=== PATIENT | male | born 1995 | race Two or more races ===

== ENCOUNTER 2020-05-10 16:29 | Emergency (ER) | payer BC, OTHER ==
[2020-05-10 17:50] VITALS: BP 120/82; PULSE 81; RESP 16; TEMP 98.5
--- NOTE | 2020-05-10 17:53 | ED ---
Medical Decision Making - Medical Decision Making Medical screening exam: 25-year-old male with no significant Lalo's presents with request for covid 19 testing. States that his girlfriend and several other people at work tested positive for Covid 19. Patient states he had mild symptoms yesterday however his symptoms improved. He wants to get tested for work purposes. Patient evaluated at bedside 5 be stable medical condition. Is not showing signs of respiratory distress. He is not hypoxic. Rest of vital signs within normal limits. Dictation was produced using [employer] dictation software. please excuse any grammatical, word or spelling errors. This patient was cared for during a federal and state declared state of emergency secondary to Covid 19 Chief Complaint: 25-year-old male presents with request for Covid testing History of Present Illness: 25-year-old male with no significant Lalo's presents with request for covid 19 testing. States that his girlfriend and several other people at work tested positive for Covid 19. Patient states he had mild symptoms yesterday however his symptoms improved. He wants to get tested for work purposes. The ROS documented in this emergency department record has been reviewed and confirmed by me. Those systems with pertinent positive or negative responses have been documented in the HPI. All other systems are other negative and/or noncontributory. PHYSICAL EXAM: General Impression: Alert and oriented x3, not in acute distress HEENT: Normocephalic atraumatic, extra-ocular movements intact, pupils equal and reactive to light bilaterally, mucous membranes moist. Cardiovascular: Heart regular rate and rhythm Chest: Able to complete full sentences, no retractions, no tachypnea, lungs clear to auscultation bilaterally Abdomen: abdomen soft, non-tender, non-distended, no organomegaly Musculoskeletal: Pulses present and equal in all extremities, no peripheral edema Motor: no focal deficits noted Neurological: CN II-XII grossly intact, no focal motor or sensory deficits noted Skin: Intact with no visualized rashes Psych: Normal affect and mood ED course:. 25 y Old male with no significant comorbidities presents to emergency department for Covid testing. Vital signs upon arrival shows findings within acceptable limits. Patient not hypoxic. He does not meet criteria for monoclonal antibodies infusion. Patient be discharged. Return premises discussed. Patient advised to quarantine. Patient directed to outpatient resources for Covid 19. - Lab Data Lab Results 05/10/20 Range/Units 17:57 Coronavirus (PCR) Detected A (Not Detectd) Disposition Clinical Impression: COVID-19 Disposition: HOME SELF-CARE Condition: Good Instructions (If sedation given, give patient instructions): Viral Pneumonia (DC) Additional Instructions: Today you were evaluated for symptoms consistent with upper respiratory infection. Today you tested positive for Covid 19. Your are stable for discharge, however it is instructed to to seek immediate medical attention especially if you develop worsening symptoms especially respiratory distress. If possible, try to obtain a pulse oximeter and monitor your oxygen at home. In the meantime please remain in quarantine for 14 days. For any other questions please contact Kate for here in emergency department or [facility] at [phone] Is patient prescribed a controlled substance at d/c from ED?: No Referrals: None,Stated [Primary Care Provider] - 1-2 days Time of Disposition: 18:35
== END 2020-05-10 18:53 | disposition home or self-care (01) ==
LOC: EC 16:29
DX: U07.1 COVID-19 (principal)
CPT/HCPCS: 87635; 99283

== ENCOUNTER 2020-10-07 16:50 | Emergency (ER) | payer OTHER ==
[2020-10-07 16:57] VITALS: TEMP 97.9
[2020-10-07] MEDS ORDERED: CARBAMIDE PEROXIDE 6.5% DROPS 15 ML BTL RIGHT EAR STA (17:14)
--- NOTE | 2020-10-07 17:17 | ED ---
ENT HPI - General Chief complaint: ENT Stated complaint: Object in RT Ear Source: patient, family Mode of arrival: ambulatory - History of Present Illness Initial comments: 25-year-old well-appearing white female patient, alert and oriented 4, presents to the emergency room with complaints of right ear pain for the past day. He states that he thought a piece of his ear bud was stuck in his ear. He denies any fevers, nausea vomiting or dizziness. MD complaint: ear pain -: days(s) (1) Location: R ear Severity scale (1-10): 3 Consistency: constant Improves with: none - Related Data Previous Rx's Medication Instructions Recorded Ibuprofen 800 mg PO Q6HR PRN #20 tablet 12/10/16 Amoxicillin 875 mg PO Q12HR 5 Days #10 tablet 10/07/20 Allergies Allergy/AdvReac Type Severity Reaction Status Date / Time methylphenidate Allergy Anaphylaxis Verified 05/10/20 17:49 [From [employer]] Review of Systems ROS Statement: Those systems with pertinent positive or pertinent negative responses have been documented in the HPI. ROS Other: All systems not noted in ROS Statement are negative. Past Medical History Past Medical History: No Reported History Additional Past Medical History / Comment(s): COVID 19 05/2020 History of Any Multi-Drug Resistant Organisms: None Reported Past Surgical History: No Surgical Hx Reported Past Psychological History: ADD/ADHD, Bipolar Smoking Status: Current every day smoker Past Alcohol Use History: None Reported Past Drug Use History: None Reported, Marijuana General Exam General appearance: alert, in no apparent distress Head exam: Present: atraumatic, normocephalic, normal inspection Eye exam: Present: normal appearance, PERRL, EOMI. Absent: scleral icterus, conjunctival injection, periorbital swelling ENT exam: Present: normal exam, normal oropharynx, mucous membranes moist, other (Cerumen impaction of the right ear, errythema noted) Expanded TM/Canal exam: Erythema: Right TM, Cerumen Impaction: Right TM, Canal Tenderness: Right TM Neck exam: Present: normal inspection, full ROM. Absent: tenderness, meningismus, lymphadenopathy Respiratory exam: Present: normal lung sounds bilaterally. Absent: respiratory distress, wheezes, rales, rhonchi, stridor, chest wall tenderness, accessory muscle use, decreased breath sounds Cardiovascular Exam: Present: regular rate, normal rhythm, normal heart sounds. Absent: systolic murmur, diastolic murmur, rubs, gallop, clicks Neurological exam: Present: alert, oriented X3, CN II-XII intact Psychiatric exam: Present: normal affect, normal mood Skin exam: Present: warm, dry, intact, normal color. Absent: rash Course Vital Signs 10/07/20 10/07/20 10/07/20 16:52 17:57 18:00 Temperature 97.9 F Pulse Rate 91 Respiratory 16 18 18 Rate Blood Pressure 126/74 O2 Sat by Pulse 100 Oximetry 10/07/20 20:00 Temperature Pulse Rate 92 Respiratory 20 Rate Blood Pressure 122/84 O2 Sat by Pulse 98 Oximetry Medical Decision Making - Medical Decision Making Patient's ear was irrigated by the nurse using Debrox and saline. I was able to visualize the tympanic membrane however the ear is red and irritated and painful. He was placed on antibiotics and directed to follow-up with ear nose and throat. Disposition Clinical Impression: Otitis media Disposition: HOME SELF-CARE Condition: Good Instructions (If sedation given, give patient instructions): Earache (ED) Additional Instructions: Take medication as prescribed and follow-up with ear, nose and throat doctor next week. Return if any worsening symptoms including fever or increased pain. Prescriptions: Amoxicillin 875 mg PO Q12HR 5 Days #10 tablet Is patient prescribed a controlled substance at d/c from ED?: No Referrals: None,Stated [Primary Care Provider] - 1-2 days Time of Disposition: 19:36
[2020-10-07] MEDS ORDERED: IBUPROFEN 600 MG TAB PO STA (18:37)
[2020-10-07 20:02] VITALS: BP 122/84; PULSE 92; RESP 20
== END 2020-10-07 20:02 | disposition home or self-care (01) ==
LOC: EC 16:50
DX: H66.91 Otitis media, unspecified, right ear (principal); F90.9 Attention-deficit hyperactivity disorder, unspecified type; F31.9 Bipolar disorder, unspecified; F17.200 Nicotine dependence, unspecified, uncomplicated

== ENCOUNTER 2020-11-04 12:19 | Emergency (ER) | payer OTHER ==
[2020-11-04 12:27] VITALS: TEMP 98.4
--- NOTE | 2020-11-04 12:46 | ED ---
General Adult HPI - General Chief complaint: Recheck/Abnormal Lab/Rx Stated complaint: Cough fever vomiting Time Seen by Provider: 11/04/20 12:33 Source: patient, RN notes reviewed, old records reviewed Mode of arrival: ambulatory - History of Present Illness Initial comments: 25-year-old male presenting for evaluation of vomiting diarrhea, congestion. Patient had been instructed to receive a coronavirus test and a work note by his employer. He had not established care with a primary care physician to date. He states he does have an appointment in mid November with primary care. He denies measured fever but his had subjective chills. He is otherwise healthy. He states he had coronavirus in April of this year. He has not been vaccinated. - Related Data Previous Rx's Medication Instructions Recorded Ibuprofen 800 mg PO Q6HR PRN #20 tablet 12/10/16 Amoxicillin 875 mg PO Q12HR 5 Days #10 tablet 10/07/20 Allergies Allergy/AdvReac Type Severity Reaction Status Date / Time methylphenidate Allergy Anaphylaxis Verified 11/04/20 12:27 [From [facility]] Review of Systems ROS Statement: Those systems with pertinent positive or pertinent negative responses have been documented in the HPI. ROS Other: All systems not noted in ROS Statement are negative. Past Medical History Past Medical History: No Reported History Additional Past Medical History / Comment(s): COVID 19 05/2020 History of Any Multi-Drug Resistant Organisms: None Reported Past Surgical History: No Surgical Hx Reported Past Psychological History: ADD/ADHD, Bipolar Smoking Status: Current every day smoker Past Alcohol Use History: None Reported Past Drug Use History: None Reported, Marijuana General Exam General appearance: alert, in no apparent distress Head exam: Present: atraumatic, normocephalic Eye exam: Present: normal appearance, PERRL ENT exam: Present: mucous membranes moist Neck exam: Present: normal inspection. Absent: tenderness, meningismus Respiratory exam: Present: normal lung sounds bilaterally. Absent: respiratory distress, wheezes Cardiovascular Exam: Present: regular rate, normal rhythm GI/Abdominal exam: Present: soft. Absent: distended, tenderness Extremities exam: Present: normal inspection, normal capillary refill. Absent: pedal edema, calf tenderness Neurological exam: Present: alert, oriented X3 Psychiatric exam: Present: normal affect, normal mood Skin exam: Present: warm, dry, intact Course Vital Signs 11/04/20 12:24 Temperature 98.4 F Pulse Rate 80 Respiratory 18 Rate Blood Pressure 114/72 O2 Sat by Pulse 100 Oximetry Medical Decision Making - Medical Decision Making 25-year-old male otherwise healthy presenting with need for coronavirus testing. Test is performed this is negative. Likely has viral gastrointestinal illness. - Lab Data Lab Results 11/04/20 Range/Units 12:30 Coronavirus (PCR) Not Detected (Not Detectd) Disposition Clinical Impression: Viral illness, Vomiting and diarrhea Disposition: HOME SELF-CARE Condition: Good Instructions (If sedation given, give patient instructions): Viral Syndrome (ED), Acute Nausea and Vomiting (ED) Is patient prescribed a controlled substance at d/c from ED?: No Referrals: Linda Joseph MD [Primary Care Provider] - 1-2 days Time of Disposition: 13:19
[2020-11-04 13:26] VITALS: BP 110/70; PULSE 75; RESP 16
== END 2020-11-04 13:25 | disposition home or self-care (01) ==
LOC: EC 12:19
DX: B34.9 Viral infection, unspecified (principal); R11.10 Vomiting, unspecified; R19.7 Diarrhea, unspecified; F90.9 Attention-deficit hyperactivity disorder, unspecified type; F31.9 Bipolar disorder, unspecified; F17.200 Nicotine dependence, unspecified, uncomplicated; F12.90 Cannabis use, unspecified, uncomplicated; Z86.16 Personal history of COVID-19; Z20.822 Contact with and (suspected) exposure to COVID-19
CPT/HCPCS: 87635; 99284

== ENCOUNTER 2021-02-08 08:56 | Emergency (ER) | payer OTHER ==
[2021-02-08 09:14] VITALS: RESP 19
--- NOTE | 2021-02-08 09:59 | ED ---
URI HPI - General Chief Complaint: Upper Respiratory Infection Stated Complaint: covid test/sore throat/aches Time Seen by Provider: 02/08/21 08:58 Source: patient, RN notes reviewed Mode of arrival: ambulatory Limitations: no limitations - History of Present Illness Initial Comments: 25-year-old male presents emergency Department with chief complaint of sore throat fever bodyaches chills. Patient states symptoms started last night progressively worsening. He states he woke up sweating but having shaking chills. Patient complains sore throat no nasal congestion cough or cold-like symptoms otherwise no GI symptoms currently but states he was nauseated. Patient has had prior covid19 - Related Data Previous Rx's Medication Instructions Recorded Azithromycin [Zithromax Z-pack (6 0 mg PO DIRECTED #1 packet 02/08/21 tabs)] Allergies Allergy/AdvReac Type Severity Reaction Status Date / Time methylphenidate Allergy Anaphylaxis/Lock Verified 02/08/21 09:40 [From [employer]] Jaw Review of Systems ROS Statement: Those systems with pertinent positive or pertinent negative responses have been documented in the HPI. ROS Other: All systems not noted in ROS Statement are negative. Past Medical History Past Medical History: No Reported History Additional Past Medical History / Comment(s): COVID 19 05/2020 History of Any Multi-Drug Resistant Organisms: None Reported Past Surgical History: No Surgical Hx Reported Past Psychological History: ADD/ADHD, Bipolar, Depression, PTSD Smoking Status: Current every day smoker Past Alcohol Use History: None Reported Past Drug Use History: None Reported, Marijuana General Exam Limitations: no limitations General appearance: alert, in no apparent distress Head exam: Present: atraumatic, normocephalic, normal inspection Eye exam: Present: normal appearance, PERRL, EOMI. Absent: scleral icterus, conjunctival injection, periorbital swelling ENT exam: Present: mucous membranes moist. Absent: normal oropharynx (Erythematous posterior pharynx, sores noted) Neck exam: Present: normal inspection, full ROM. Absent: tenderness, meningismus, lymphadenopathy Respiratory exam: Present: normal lung sounds bilaterally. Absent: respiratory distress, wheezes, rales, rhonchi, stridor Cardiovascular Exam: Present: regular rate, normal rhythm, normal heart sounds. Absent: systolic murmur, diastolic murmur, rubs, gallop, clicks Course Vital Signs 02/08/21 02/08/21 08:57 09:10 Temperature 97.6 F Pulse Rate 66 Respiratory 132 H 19 Rate O2 Sat by Pulse 99 Oximetry Medical Decision Making - Medical Decision Making Patient has a negative influenza and COVID-19 test. Patient we treated for acute fractures return pressure discussed. - Lab Data Lab Results 02/08/21 02/08/21 Range/Units 09:09 09:09 Coronavirus (PCR) Not Detected (Not Detectd) Influenza Type A RNA Not Detected (Not Detectd) Influenza Type B (PCR) Not Detected (Not Detectd) Disposition Clinical Impression: Pharyngitis Disposition: HOME SELF-CARE Condition: Stable Instructions (If sedation given, give patient instructions): Pharyngitis (ED) Additional Instructions: Please return to the Emergency Department if symptoms worsen or any other concerns. Prescriptions: Azithromycin [Zithromax Z-pack (6 tabs)] 0 mg PO DIRECTED #1 packet Is patient prescribed a controlled substance at d/c from ED?: No Referrals: Linda Joseph MD [Primary Care Provider] - 1-2 days Time of Disposition: 09:58
[2021-02-08 10:33] VITALS: BP 120/87; PULSE 70; TEMP 98
== END 2021-02-08 10:15 | disposition home or self-care (01) ==
LOC: EC 08:56
DX: J02.9 Acute pharyngitis, unspecified (principal); Z20.822 Contact with and (suspected) exposure to COVID-19; F17.200 Nicotine dependence, unspecified, uncomplicated
CPT/HCPCS: 87502; 87635; 99283

== ENCOUNTER → 2021-06-06 | Emergency (ER) | payer OTHER | LOC: EC 13:55 | DX: R11.2 Nausea with vomiting, unspecified (principal) | CPT/HCPCS: 99283 ==